=== PATIENT | female | born 1965 | race Caucasian/White ===

== ENCOUNTER 2023-02-10 10:25 | Inpatient (IN) | payer OTHER, SELFPAY ==
[2023-01-30 13:16] VITALS: BMI 28.2
[2023-02-10] VITALS (14 sets, daily range): BP systolic 104–136; BP diastolic 57–86; PULSE 65–90; RESP 12–18; TEMP 36.3–37.1; O2SAT 95–99; BMI 28.2; BMI 30.2
--- NOTE | 2023-02-10 | DI.RAD.S_ITS ---
PROCEDURE: XR LUMBAR SPINE 2-3V INDICATIONS: TLIF L4-5 TECHNIQUE: 2 operative views of the lumbar spine were acquired. COMPARISON: None. FINDINGS: Operative fluoroscopy was utilized during posterolateral rima and pedicle screw fixation and disc spacer placement at L4-L5. IMPRESSION: Operative fluoroscopy utilized during lumbar fusion surgery. No radiographic evidence of complications. Dictated by: Geovany Tellez M.D. on 02/10/2023 at 16:25 Approved by: Geovany Tellez M.D. on 02/10/2023 at 16:31
[2023-02-10 11:02] LABS: COVID19 -Nasal RAPID Negative (Negative)
[2023-02-10] MEDS: LACTATED RINGERS 1,000 ML 84 ML IV ×2 (11:16→12:57)
--- NOTE | 2023-02-10 12:04 | PM.PREOP ---
Pre-operative Note COVID-19 COVID-19 status: Negative Result date/Date tested (Pos, Neg/Pending): 02/09/23 Criteria for continued procedure: Expected advancement of disease process, Possibility delay results in more complex future surgery or treatment, Increased loss of function, Continuing or worsening of significant or severe pain, Deterioration of the patient's condition or overall health and Delay expected to result in less-positive ultimate med/surg outcome Interval Note History & Physical reviewed/Exam performed by Physician: Yes Changes to H&P: No
[2023-02-10] MEDS: CEFAZOLIN 2 GM/100 ML PREMIX 100 ML IV ×2 (12:36→20:33)
[2023-02-10] MEDS: BUPIVACAINE 0.25% (PF) 30 ML, EPINEPHrine 0.3 MG INJ (13:06)
[2023-02-10] MEDS: BUPIVACAINE 0.25% (PF) VIAL 30 ML INJ (13:08)
--- NOTE | 2023-02-10 13:14 | SUR.OPER ---
Prone on spine table, head in foam head support, padded chest and pelvic supports, gel pad at knees, lower legs supported by pillows; nipples, genitalia and toes free of pressure, arms secured on foam padded arm boards at <90 degrees abduction. Tape over blanket at thigh secured to table.
--- NOTE | 2023-02-10 15:54 | P.OP_ITS ---
Operative Date/Time/Diagnoses Date of procedure: 02/10/23 Time of procedure: 13:00 Pre-op diagnosis: 1. L4-5 spinal stenosis with disc herniation 2. History of L5-S1 fusion 3. Neurogenic claudication Post-op diagnosis: same Procedure & Clinicians Procedure: 1. L4-5 posterolateral and posterior interbody fusion 2. L4-5 posterior interbody cage placement 3. L5-S1 posterior non-segmental instrumentation removal 4. L5-S1 revision laminectomy with exploration of fusion 5. L4-5 posterior non-segmental instrumentation with pedicle screw placement 6. L5-S1 posterolateral fusion 7. [place] of bone marrow from iliac crest through a separate incision 8. Utilization of microsurgical technique and operating microscope Same procedure as scheduled: Yes Indications: Patient has been having chronic back pain and worsening lumbar radiculopathy and symptoms of neurogenic claudication. Patient failed multiple conservative management with worsening pain weakness and numbness in her lower extremity. Patient has been having difficulty performing activity of daily living. After discussing risks benefits of treatment options, patient elected proceed with surgery. Surgeon: Dao Martínez Technical Sales Advisor: Alyssia Wilson Click Yes if Unassisted: No Anesthesia Type: General Operative Notes Closure Type: primary Specimen(s): none sent Prosthetic devices, grafts, tissues, transplants, or devices: Globus revolve screws, Rise cage Applied: catheter Estimated Blood Loss (mL): 50 Blood products transfused: none Procedure in detail: Patient was seen in the preoperative area. Risks and benefits of the surgery was discussed with the patient. Informed consent was obtained from the patient and placed in the chart. Surgical site was marked. Patient was taken to the operative room. General anesthesia was administered. Prophylactic antibiotic was given to the patient less than 30 min before the incision was made. Patient was placed into a prone position on the Chung table. Patient's back was then prepped and draped in the sterile fashion. Time-out was performed at this time. Using patient's previous scar incision was made over the L4-5 L5-S1 interval on the left side. Fascia was incised in line with skin incision. Patient's previously placed hardware over the L5-S1 level was identified by dissecting down to the level the hardware using a Bovie and a Laboy. The locking caps which was removed using globus screwdriver. The locking irma was then removed from the tulips of the pedicle screws using a Timmy. The pedicle screws were then removed using the screwdriver. The screws were found to have good purchase. The Globus and MARS retractors was then placed into the wound and docked onto the L4 lamina using C-arm guidance. Using microsurgical technique and operating microscope a laminectomy facetectomy was performed by removing the L4 lamina and the L4-5 facet. The disc space at L4-5 level was identified next. And a total diskectomy was performed at L4-5 level. The endplates were decorticated using a rasp and shaver. The total diskectomy and decortication was performed at L4-5 level in order to to accomplish a L4-5 fusion. The local bone from the laminectomy and facetectomy was saved for local bone grafting. After the total diskectomy and decortication was completed, Trifecta bone graft material was combined with local bone that was harvested earlier. At this time, a separate skin is incision was made over the iliac crest. A Jamshidi needle was inserted into the iliac crest through a separate skin incision. 5 cc of bone marrow aspiration was obtained through the separate skin incision using a Jamshidi needle from the iliac crest. The bone marrow aspiration was combined with local bone and the Trifecta bone grafting material. The bone grafting material was placed into the L4-5 interbody space along with a expandable cage. The cage was expanded to its maximum height using the torque limiting screwdriver. At this time a mirror image incision was made on the right side. The fascia was incised in line with the skin incision. Patient's previously placed hardware on the right side was then removed in the same fashion as it was on the left side. The hardware was also found to have good purchase. The fusion mass on the right side was exposed by performing a right-sided hemilaminectomy at L5-S1 level. The hemilaminectomy was performed using the Kerrison rongeur to undercut the lamina at L5-S1 as well removing additional epidural scar tissue for purpose of decompressing the epidural space. The fusion mass was explored and was found have visible motion indicating pseudoarthrosis at L5-S1 level on the right side. Globus MARS retractor was inserted and docked onto the L4-5 L5-S1 posterolateral gutter. Using the power drill, posterior-lateral decortication w as performed at L4-5 L5-S1 level until bleeding cortical bone was identified. The remaining bone grafting material was placed into the L4-5 L5-S1 posterior lateral gutter he order to accomplish posterolateral fusion at the L4-5 L5-S1 level. Using the double C-arm technique, pedicle screws were placed into the L4-L5 and S1 pedicles bilaterally. This was done by placing the Jamshidi needle into the pedicles, then placing the guidewires over the Jamshidi needle, and finally placing the cannulated screws over the guidewires bilaterally. After the pedicle screws were placed, 2 titanium rods was locked into the heads of the pedicle screws using locking caps and torque limiting screwdriver. After all the hardware was placed, and confirmed with AP and lateral C-arm imaging, the wound was then irrigated with sterile normal saline and packed with Ray-Rin gauze for 3 min to accomplish hemostasis. After the gauze was removed the deep fascia was closed with #1 Vicryl suture. The subcutaneous layer was closed with 2-0 Vicryl. The skin was closed with skin tessy. Patient tolerated the procedure well. There were no complications. Complications: none Post-operative Condition: stable Disposition: PACU Plan for aftercare: Admit to inpatient hospital
[2023-02-10] MEDS: fentaNYL 100 MCG/2 ML INJ IV ×2 (16:01→16:12)
[2023-02-10] MEDS: hydrOXYzine 50 MG/ML INJ IM (16:02)
[2023-02-10] MEDS: LORazepam 2 MG/ML INJ 0.5 MG IV (16:18)
[2023-02-10] MEDS: OXYCODONE/ACETAMINOPHEN 5/325 TABLET 1 TAB PO (16:20)
--- NOTE | 2023-02-10 16:46 | SUR.PHASEI ---
to room 216, report called. All belongings with patient on bed
[2023-02-10] MEDS: LACTATED RINGERS 1,000 ML 125 ML IV (18:24)
[2023-02-10] MEDS: SENNOSIDES 8.6 MG TABLET 17.2 MG PO (20:34)
[2023-02-10] MEDS: DOCUSATE 100 MG CAPSULE PO (20:34)
[2023-02-10] MEDS: OXYCODONE IR 10 MG TABLET PO (20:35)
--- NOTE | 2023-02-10 23:43 | PC.NURSE ---
Patient is oriented but drowsy and slow to respond. Breath sounds diminished but CTA with RA sat of 96%. HRR but bradycardic at 56 bpm apically. Denies nausea. BT hypoactive and denies flatus since return from surgery. Indwelling catheter is patent; urine is clear, henri. Is able to turn with minimal staff assist; log rolls appropriately. Has not yet been out of bed so gait not assessed. Dressing to back is CDI. CMS intact except for some decreased sensation in right LE. Is wearing bilateral calf SCD's. Received oxycodone for 6/10 spasm like pain at 2034. Fall risk score is high as patient reports having fallen in past 3 months; bed alarm is activated.
[2023-02-11] VITALS: BP 102/45; PULSE 62; RESP 18; TEMP 36.1; O2SAT 100
[2023-02-11] MEDS: OXYCODONE IR 10 MG TABLET PO ×5 (00:45→21:01)
[2023-02-11] MEDS: LACTATED RINGERS 1,000 ML 125 ML IV (02:30)
[2023-02-11] MEDS: hydrOXYzine pamoate 25 MG CAPSULE PO ×4 (02:33→17:51)
[2023-02-11 03:45] VITALS: BP 122/61; PULSE 69; RESP 17; TEMP 36.7; O2SAT 98
[2023-02-11] MEDS: CEFAZOLIN 2 GM/100 ML PREMIX 100 ML IV (04:31)
[2023-02-11 06:28] LABS: Hematocrit 32.2 % (36-46); Hemoglobin 10.9 g/dL (12.0-16.0)
[2023-02-11] MEDS: DULOXETINE 30 MG CAPSULE PO (08:41)
[2023-02-11] MEDS: DOCUSATE 100 MG CAPSULE PO ×2 (08:41→21:01)
[2023-02-11 09:07] VITALS: BP 100/53; PULSE 64; RESP 18; TEMP 37.1; O2SAT 97
--- NOTE | 2023-02-11 10:37 | CM.DANOTE ---
Initial Discharge Assessment Note: Case reviewed, met with patient. Introduced self and role. Payer: [employer], [place] and self pay PCP: Dr Eugenia Castillo 57 year old female admitted yestereday for TLIF. She states she injured self on job. 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 She live in [place] with her retired spouse who is able to help post op. She states she also has a supportive family and best friends nearby who are going to be helpful to her every day. Plan: When medically/surgically cleared, return home to care of spouse. SEJ Discharge Planning/Care Management CM Discharge Assessment Start: 02/11/23 10:34 Freq: Status: Active Protocol: Document 02/11/23 10:34 SJ (Rec: 02/11/23 10:37 [id number]) Discharge Planning Assessment Assigned Clerk Rating Alison Reece RN/DCP Advance Directives? No History Provided By Patient,Medical Record Prior Living Arrangements House Household Members spouse Type of transporation used prior to Drives own vehicle admit Comment Works, drives heavy machinery. L&I case. Independent with ADL's Yes Is patient alert and oriented? Yes Caregiver for Another No Barriers to Discharge No Discharge Plan Home Transportation Arrangement Spouse to transport Referrals Initiated None needed Review Status In Process Next Review Type Continued Stay Review Pre-Anesthesia Assessment Start: 01/30/23 13:16 Freq: Status: Complete Protocol: Document 01/30/23 13:16 CAB (Rec: 01/30/23 14:29 CAB [id number]) Pre-Anesthesia Assessment Patient Information Reviewed Via Phone Assessment Assessment Completed With Patient Comment Labs/EKG done @ [facility] per pt, not here Primary Care Provider Jihan Castillo Seen Specialist in Last 12 Months Yes Specialist Seen Orthopedist Primary Language Frisian Renewable [employer] Trader Required No Height 167.64 cm Weight 79.379 kg Body Mass Index (BMI) 28.2 Hearing Ability Normal Visual Impairment No Limitations Visual Assist None Dentition Type Partial- Upper Barriers to Learning None Hx Anesthesia Reactions No Hx Family Anesthesia Reaction No Hx Malignant Hyperthermia No Hx Blood Transfusions No Anesthesia Review Requested No Environmental Remediation Consultant No alcohol intake current alcohol intake frequency holidays/special occasions only Smoking Status Former smoker how long ago did patient quit smoking Quit 5 months ago Substance Use Type does not use Pain Present Pain Reported Musculoskeletal Symptoms Abnormal Gait,Back Pain, Difficulty Walking,Numbness, Radiating Pain into Limb, Tingling History of Falling (Recent or History of Yes ) Patient is completely paralyzed or No completely immobile Mental Status Oriented to own ability Is patient on oxygen? No Does patient have STEPHENS/SOB No Hx Sleep Apnea No Currently Taking a Beta Mariaa No Can You Climb a Flight of Stairs Without Yes SOB Hx Chest Pain No Hx SOB No Hx Syncope or Dizziness No Anti-Coagulant Therapy No Has a Private Banker No Cardiac Testing No Hx Pacemaker/ICD No Pacemaker Rep Required? No Cardiac Clearance Received Not Applicable Diet Type At Home Regular,Gluten Free Dysphagia No Gastrointestinal Symptoms Constipation Chronic UTI No Bladder Pattern Frequency,Incontinent, Stress, Urgency Urinary Catheter Present No Hx Urinary Self Catheterization No Diabetes No Patient No Lactating No Hx Drug Resistant Organism No Presence of External or Internal Medical Yes: Lumbar hardware Devices Have you had any close contact with No someone diagnosed with COVID-19? Received a COVID vaccine? Yes Received all doses? Yes Marital Status Lives With spouse Current Living Arrangements House Number of Floors (Floors) One Floor Support System Spouse Does the Patient Have Assistance After Yes Surgery Patient Discharge Plan Description Return Home Comment Pt not advised on length of stay per surgeon Feels Safe in Current Environment Yes Been Physically Hurt or Threatened By a No Person in Current Environment Do you have thoughts of harming yourself None or others? Are you currently considering suicide? No Do you have a plan to hurt yourself or No Plan others? Do You Have Any Spiritual Beliefs That No May Affect Your HC Choices? Do You Have Any Cultural Practices That No May Affect Your HC Choices? Comment Mosque Who Can We Speak to About Patient's Care Family, friends Identifying Code for Release of Patient Declines to issue Information Health Care Proxy/Next of Kin Reginald () Health Care Proxy Emergency Contact Name Reginald () Emergency Contact Advance Directives? No Power of Manager English No PAC Instructions Durable medical equipment, Medications to take/avoid, Nasal antibiotic,No ETOH/ petroleum product on skin DOS, NPO,Post-op transportation,Pre -surgical wash,Sensory aids, Sturdy shoes/comfortable clothes,Do not bring valuables and remove jewelry
--- NOTE | 2023-02-11 11:45 | PM.PNPO.1 ---
Subjective Subjective Date Patient Seen: 02/11/23 Time Patient Seen: 11:45 Interval history: Lying in bed, just finished PT. 'I feel like crap.' C/o low back pain that radiates into her groin and down her anterior legs. This is intermittent and varies from sharp to achy. Eating without difficulty. Miles catheter in. Exam Vital Signs (past 8 hours): - 02/11/23 09:07 Temperature 98.8 F Pulse Rate 64 Respiratory Rate 18 Blood Pressure 100/53 L Pulse Oximetry 97 Oxygen Flow Rate 0 Oxygen Delivery Method Room Air Oxygen Flow Rate 0 Narrative Exam Narrative: 5/5 strength in hip flexors, quadriceps, hamstrings bilaterally. 5/5 DF, PF, EHL on right; 3/5 DF, PF, EHL on left. Per pt, had left foot weakness prior to surgery. Sensation to light touch intact in BLE. Calves soft, compressible, nontender and without palpable cords or masses. Objective Labs 02/11/23 05:20 Labs: Laboratory Results - last 24 hr 02/11/23 05:20 Hgb 10.9 L Hct 32.2 L PFSH Medical History (Updated 01/30/23 @ 14:23 by Joy Morejon RN) Bradycardia Fibromyalgia Gluten intolerance Herniated nucleus pulposus, lumbar History of COVID-19 (2021) IBS (irritable bowel syndrome) Major depression PTSD (post-traumatic stress disorder) Recurrent displacement of lumbar disc (2006) Surgical History (Updated 02/11/23 @ 11:50 by Nereida Hardy PA-C) History of ankle surgery (2003) History of bladder surgery History of hysterectomy History of lumbar fusion (2010) History of mandibular surgery (1984) Hx of discectomy Hx of elbow surgery (2017) Hx of tonsillectomy Social History household members: spouse Smoking Status: Former smoker alcohol intake: current Assessment & Plan Post-op Assessment and plan (1) S/P lumbar fusion: Assessment and Plan narrative: Will give dexamethasone for LE sxs; if helpful, pt should have Medrol Pack at discharge. D/c miles. Continue PT. Hope for d/c home tomorrow if good pain control and progress w/ PT. Postoperative Procedures: Procedures Operation Date: 02/10/23 11:45 Actual Procedure Side Surgeon p L4-5 TLIF, L4-S1 PSF w. instrumentation Dao Martínez MD Postoperative day: 1 Quality VTE Deep Vein Thrombosis/Pulmonary Embolism Present on Admission: No
[2023-02-11 12:00] VITALS: BP 102/48; PULSE 61; RESP 18; TEMP 36.9; O2SAT 100
--- NOTE | 2023-02-11 12:09 | PT.IIE ---
Current Diagnoses Other intervertebral disc displacement, lumbar region (02/10/23) Arthrodesis status (02/10/23) Surgery Performed Operation Date: 02/10/23 11:45 Actual Procedures p L4-5 TLIF, L4-S1 PSF w. instrumentation - Dao Martínez MD Surgical History (Last Updated 01/30/23 @ 14:18 by oJy Morejon, RN) History of ankle surgery (2003) History of bladder surgery History of hysterectomy History of lumbar fusion (2010) History of mandibular surgery (1984) Hx of discectomy Hx of elbow surgery (2017) Hx of tonsillectomy Medical History (Last Updated 01/30/23 @ 14:23 by Joy Morejon, RN) Bradycardia Fibromyalgia Gluten intolerance Herniated nucleus pulposus, lumbar History of COVID-19 (2021) IBS (irritable bowel syndrome) Major depression PTSD (post-traumatic stress disorder) Recurrent displacement of lumbar disc (2006) Physical Therapy Inpatient Evaluation/Re-Eval M1 PT/OT-IP Prior Functional Status Start: 02/11/23 11:22 Freq: NEEDED Status: Active Protocol: Document 02/11/23 11:23 LRN (Rec: 02/11/23 11:57 LRN [id number]) Medical Review Prior Functional Status Medical History Reviewed Yes Mobility and Gait Ambulate without assist device . Activities of Daily Living and IADL's Independent, limited in time standing. 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 Social History Household Members spouse Living Arrangements House Number of Floors (Floors) One Floor Number of Stairs To Enter/Railing? 2 steps with railing bilaterally Home Environment Standard Height Toilet,Tub/ Shower Home Equipment Front Wheel Walker,Quad Cane, Raised Toilet Seat w/Armrests, Shower Seat with Backrest, Shower Seat without Backrest, Hand Held Shower,Long Handled Sponge,Long Handled Shoe Horn, Perfume Compounder,Grab Bars In Shower Additional Social History Comment Has home care team: spouse, mother, daughter 2 best friends. M2 PT-IP Current Condition Start: 02/11/23 11:22 Freq: NEEDED Status: Active Protocol: Document 02/11/23 11:23 LRN (Rec: 02/11/23 11:57 LRN [id number]) Physical Therapy Current Condition Current Condition Evaluation Date 02/11/23 Treatment Diagnosis L4-L5 interbody fusion, L5-S1 posterolateral fusion Onset Date 02/10/23 M3 PT-IP Subjective Start: 02/11/23 11:22 Freq: NEEDED Status: Active Protocol: Document 02/11/23 11:23 LRN (Rec: 02/11/23 11:57 LRN [id number]) Subjective Physical Therapy Visit Type Type Initial Evaluation Visit Start Time 10:22 Visit Stop Time 11:20 Total Visit Minutes 48 Notes 10 minutes break in evaluation due to being paged overhead to address other concerns. Physical Therapy Visit Comments Patient Comments Pt agreeable to therapy. c/o back pain and anterior groin pain hip flexors angry. Pt reports anterior thigh spasms bilaterally. Pt states standing for short period to begin with helps reduce pain. Patient Goals Pt goal is to go home with family to help. Therapy Pain Assessment Pain When Pain Assessed At Rest Pain Present Pain Present Pain Reported Location Bilateral Hip Intensity 8 Scale Used Numeric (0 - 10) Description Spasm Lower Back Intensity 8 Scale Used Numeric (0 - 10) M4 PT-IP Mobility and Gait Start: 02/11/23 11:22 Freq: NEEDED Status: Active Protocol: Document 02/11/23 11:23 LRN (Rec: 02/11/23 11:57 LRN [id number]) PT-Bed Mobility Assessment Rolling Type of Rolling Log Rolling Level of Assist Minimal Assistance Supine to Sit Supine to Sit Minimal Assistance Sit to Supine Sit to Supine Minimal Assistance Scooting Scooting to Edge of Bed Independent PT-Transfer Assessment Sit to and From Stand Sit to and from Stand Standby Assistance Equipment Transfer Assistive Device Gait Belt,Front Wheeled Walker Orthotic/Prosthetic Devices or Brace: No Transfers Transfer Destination Bed Transfer Technique Stepping back/forth from bed Transfer Ability Level of Assist Minimal Assistance Comments Mobility Comments Pt required standing rest on intial standing with reduction of pain rated from 8/10 to 6/ 10. Pt felt nausea on initial sidelie>sit, but did not produce emesis. Pt felt better with deep breathing and moving near bed. Pt was returned to bed and placed in sidelie with pillow behind the back, and between the knees and ice pack placed in the back and anterior hips. Call button and bed remote was placed within reach. Pt's tray table and phone were also placed in front of her within reach. Pt I/S to notify nursing when ready to lie on her back for assist in placement of pillows. Gait Assessment Gait Gait Assistance Required: Standby Assistance Distance (Feet) 12 Able to Maintain Weight Bearing Status Yes During Gait Assistive Devices Assistive Device Gait Belt,Front Wheeled Walker Orthotic/Prosthetic Devices or Brace: No Gait Deviations General Gait Pattern Antalgic,Decreased Feet Clearance Factors Limiting Gait Function Factors Limiting Gait Function Decreased Activity Tolerance, Decreased Strength,Pain,Poor Balance Comments Gait Comments Pt was able to take 3 steps to right x 2, left x 1, and fwd/ bkwd x 1. She was initially nauseous on standing but did not produce emesis. Pt demonstrated mild foot drop on the left, but was able to mostly clear her foot from the ground. Stair Climbing Assessment Comments Stair Climbing Comments Pt was not appropriate for stair ambulation at this time due to poor tolerance of activities of transfers and gait and c/o pain and nausea. PT-Balance Assessment Sitting Balance and Reactions Static Sitting Balance Ability Good Dynamic Sitting Balance Ability Poor Standing Balance and Reactions Static Standing Balance Ability Good Dynamic Standing Balance Ability Good Device Used FWW M5 PT-IP Objective Assessments Start: 02/11/23 11:22 Freq: NEEDED Status: Active Protocol: Document 02/11/23 11:23 LRN (Rec: 02/11/23 11:57 LRN [id number]) Orientation Orientation/Cognition Level of Alertness Alert Orientation Name,Month,Year,Day of Week, Place,Situation Language Function Ability No Deficits Noted Safety Awareness Understands Safety Issues Memory Description No Deficits Noted Gross Range of Motion Upper Extremity ROM Assessment Within Functional Limits Lower Extremity ROM Assessment Within Functional Limits Strength Upper Extremity Strength Assessment Within Functional Limits Lower Extremity Strength Assessment Bilaterally Impaired Hip Deferred formal testing due to LBP, pt demonstrates at least 2-3/5 strength Knee Deferred formal testing due to LBP, but pt able to demonstrate 3/5 strength Ankle DF: L ankle 3/5, R ankle 4/5 Sensation Assessment Comments Sensation Comments Pt did not c/o numbness or tingling in the LE's. M6 PT-IP Treatment Start: 02/11/23 11:22 Freq: NEEDED Status: Active Protocol: Document 02/11/23 11:23 LRN (Rec: 02/11/23 11:57 LRN [id number]) Physical Therapy Treatment Education Education Provided Precautions,Post-Op Packet Other Treatments Other Treatment Performed Pt educated to avoid prolonged sitting > 30 minutes and educated in positioning in sidelie with use of pillows to support the back and between the knees. Encouraged pt to request nursing assist to change positions as needed for being able to tolerate supine positioning. M7 PT-IP Assessment and Plan Start: 02/11/23 11:22 Freq: NEEDED Status: Active Protocol: Document 02/11/23 11:23 LRN (Rec: 02/11/23 11:57 LRN [id number]) PT Summary Assessment and Plan Potential Rehabilitation Potential Good Status of Condition at Evaluation Evolving Summary Impairments Pain,ROM,Bed Mobility, Transfers,Gait,Activity Tolerance Assessment Summary Pt is post op day 2 s/p L4-L5 interbody fusion, L5-S1 posterolateral fusion, with harvest of bone marrow from iliac crest through a separate incision. The pt was initially in semi-reclined position to start and had a very difficulty time on being placed in supine position; therefore it was recommended that the pt avoid flexion at the hips for no greater than 30 minutes at a time while in healing phase. Pt was able to transfer with minimal assist out of bed, but did become nauseous on initial sitting. She appeared to do best in standing with a reduction in her pain complaints at the back and hips. She didn't appear to tolerate well being on her feet and stepping near bed; therefore the pt was returned to bed and repositioned in sidelie with support to her back and as straight as she could tolerate her legs being. The pt needs assist with all mobility and was not appropriate for stair ambulation due to her low tolerance. I recommend the pt stay for one more night to improve her safety with mobility and for one session of stair training. I expect with the amount of assist the patient will have at home upon DC, she will be safe to go home if she can manage stairs for entry into her house. Goals Bed Mobility Goal Independent,Standby Assistance Transfer Goal Independent,Standby Assistance Gait Goal Independent,Standby Assistance Gait Distance 100 ft Days to Meet Goals 2 Frequency of Treatment Frequency Of Treatment Twice a Day Treatment Plan Physical Therapy Treatment Plan Bed Mobility Training,Transfer Training,Gait Training,Post Op Education,Hot or Cold Pack Other Recommendations and Next Treatment Stair training Focus Precautions Lumbar Precautions Log Roll,No Twisting,Limit Bending,Lifting Restriction of 10 lbs,Gait Belt above Incisional Area Other Precautions Avoid prolonged sitting > 30 minutes Weight Bearing Status Weight Bearing Status Weight Bear as Tolerated Recommendations To Nursing Amount of Assist Needed 1 Person Assist Discharge Recommendations PT Discharge Recommendations Home with Assistance Other Discharge Recommendations Pt will need to be assessed in her ability to manage stairs for her to get into her home before discharge home. Transportation Needs at Discharge Private Vehicle
[2023-02-11] MEDS: ACETAMINOPHEN 325 MG TABLET 650 MG PO (13:26)
[2023-02-11] MEDS: DEXAMETHASONE 4 MG/ML VIAL IV ×2 (13:28→17:51)
[2023-02-11 20:00] VITALS: BP 124/71; PULSE 54; RESP 18; TEMP 37.2; O2SAT 97
[2023-02-11] MEDS: SENNOSIDES 8.6 MG TABLET 17.2 MG PO (21:01)
[2023-02-11] MEDS: SODIUM CHLORIDE 0.9% FLUSH 10 ML IV (21:01)
--- NOTE | 2023-02-11 21:46 | PC.NURSE ---
Addendum entered by Yesenia Washington R.N. 02/12/23 06:19: Catheter d'cd; tolerated well. Instructed in sx/prevention of UTI. Placed pad as patient states she has problems with urgency and dribbling. Original Note: Patient is alert and oriented. Breath sounds CTA with RA sat of 96%. HRR but bradycardic with rate of 56 apically. Denies nausea. BT present and is passing flatus. Indwelling catheter patent; urine is clear, light yellow. Refused to have catheter removed but states she is agreeable to having discontinued in a.m. Is able to turn herself in bed. Has been out of bed today with walker and 1 assist. Still had pain control issues during day but more tolerable since receiving Dexamethasone; medicated for 7/10 back and hip pain with oxycodone and ice applied to hips. States pain is a dull ache but with movement is more sharp. Wearing bilateral calf SCD's. States she has tingling in both feet and sensation is better in right foot; CMS otherwise is intact. Fall risk score is high and bed alarm is activated.
[2023-02-11 23:30] VITALS: BP 110/50; PULSE 59; RESP 18; TEMP 36.9; O2SAT 94
[2023-02-12] MEDS: SODIUM CHLORIDE 0.9% FLUSH 10 ML IV ×3 (00:02→08:29)
[2023-02-12] MEDS: DEXAMETHASONE 4 MG/ML VIAL IV ×3 (00:02→12:07)
[2023-02-12] MEDS: OXYCODONE IR 10 MG TABLET PO ×3 (03:23→09:54)
[2023-02-12] MEDS: hydrOXYzine pamoate 25 MG CAPSULE PO (03:26)
[2023-02-12] MEDS: ACETAMINOPHEN 325 MG TABLET 650 MG PO (04:18)
[2023-02-12 04:49] VITALS: BP 106/54; PULSE 60; RESP 19; TEMP 36.8; O2SAT 99
[2023-02-12 08:00] VITALS: BP 118/45; PULSE 55; RESP 20; TEMP 36.9; O2SAT 98
[2023-02-12] MEDS: DOCUSATE 100 MG CAPSULE PO (08:27)
[2023-02-12] MEDS: LORATADINE 10 MG TABLET PO (08:27)
[2023-02-12] MEDS: DULOXETINE 30 MG CAPSULE PO (08:27)
--- NOTE | 2023-02-12 09:38 | PT.IPTN ---
Current Diagnoses Other intervertebral disc displacement, lumbar region (02/10/23) Arthrodesis status (02/10/23) Surgery Performed Operation Date: 02/10/23 11:45 Actual Procedures p L4-5 TLIF, L4-S1 PSF w. instrumentation - Dao Martínez MD Physical Therapy Treatment Note M2 PT-IP Current Condition Start: 02/11/23 11:22 Freq: NEEDED Status: Active Protocol: Document 02/11/23 11:23 LRN (Rec: 02/11/23 11:57 LRN [id number]) Physical Therapy Current Condition Current Condition Evaluation Date 02/11/23 Treatment Diagnosis L4-L5 interbody fusion, L5-S1 posterolateral fusion Onset Date 02/10/23 M3 PT-IP Subjective Start: 02/11/23 11:22 Freq: NEEDED Status: Active Protocol: Document 02/12/23 09:14 KS (Rec: 02/12/23 10:28 KS [id number]) Subjective Physical Therapy Visit Type Type Treatment Note Visit Start Time 09:14 Visit Stop Time 09:38 Total Visit Minutes 24 Notes Spouse present for caregiver training Number of DRILL SETUP OPERATOR Visits 1 Physical Therapy Visit Comments Patient Comments Pt agreeable to PT, wants to go home. Patient Goals Pt goal is to go home with family to help. BP 128/56 Standing M4 PT-IP Mobility and Gait Start: 02/11/23 11:22 Freq: NEEDED Status: Active Protocol: Document 02/12/23 09:14 KS (Rec: 02/12/23 10:28 KS [id number]) PT-Bed Mobility Assessment Rolling Type of Rolling Log Rolling,Roll to Left Level of Assist Standby Assistance Scooting Scooting to Edge of Bed Independent PT-Transfer Assessment Sit to and From Stand Sit to and from Stand Independent Equipment Transfer Assistive Device Gait Belt,Front Wheeled Walker Orthotic/Prosthetic Devices or Brace: No Transfers Transfer Destination Bed,Toilet Transfer Technique Ambulated Transfer Ability Level of Assist Standby Assistance,Use of Upper Extremities Comments Mobility Comments Pt ambulating to bathroom w/ [id number] assisting upon arrival . BP taken in standing 128/56. Pt able to recall 3/3 spinal precautions. She ambulated to platform step in hallway and completed 2x platform step w/ FWW and CGA w/ cues for sequencing. Her spouse provided CGA for second step and then SBA for ~200 ft ambulation w/ FWW in hallway. Pt states her L foot drop and numbness feels improved post surgery. She returned to her room and bed SBA. Pt left w/ all needs in reach and spouse in room. Gait Assessment Gait Gait Assistance Required: Standby Assistance Distance (Feet) 200 Able to Maintain Weight Bearing Status Yes During Gait Assistive Devices Assistive Device Gait Belt,Front Wheeled Walker Orthotic/Prosthetic Devices or Brace: No Gait Deviations General Gait Pattern Antalgic,Decreased Feet Clearance Factors Limiting Gait Function Factors Limiting Gait Function Decreased Activity Tolerance, Decreased Strength,Pain,Poor Balance Comments Gait Comments Good use of FWW, slow and cautious gait w/ slight L foot drop, but no LOB. Has FWW at home. Stair Climbing Assessment Evaluation Level of Assist On Stairs Contact Guard Assistance,1 Person Assistance Devices Stair Climbing Assistive Devices Front Wheel Walker Technique/Endurance Stair Climbing Direction Ascend and Descend Stair Climbing Technique Step to Step Number of Steps Climbed 1 Stair Climbing Set # Repetitions (reps) 2 Comments Stair Climbing Comments Pt ascended and descended 2x platform step w/ FWW and CGA provided by and verbal cues for sequencing of legs and FWW. Pt feels confident to complete stairs at home and feels capable of helping. PT-Balance Assessment Sitting Balance and Reactions Static Sitting Balance Ability Good Dynamic Sitting Balance Ability Fair Standing Balance and Reactions Static Standing Balance Ability Good Dynamic Standing Balance Ability Good Device Used FWW M5 PT-IP Objective Assessments Start: 02/11/23 11:22 Freq: NEEDED Status: Active Protocol: Document 02/11/23 11:23 LRN (Rec: 02/11/23 11:57 LRN [id number]) Orientation Orientation/Cognition Level of Alertness Alert Orientation Name,Month,Year,Day of Week, Place,Situation Language Function Ability No Deficits Noted Safety Awareness Understands Safety Issues Memory Description No Deficits Noted Gross Range of Motion Upper Extremity ROM Assessment Within Functional Limits Lower Extremity ROM Assessment Within Functional Limits Strength Upper Extremity Strength Assessment Within Functional Limits Lower Extremity Strength Assessment Bilaterally Impaired Hip Deferred formal testing due to LBP, pt demonstrates at least 2-3/5 strength Knee Deferred formal testing due to LBP, but pt able to demonstrate 3/5 strength Ankle DF: L ankle 3/5, R ankle 4/5 Sensation Assessment Comments Sensation Comments Pt did not c/o numbness or tingling in the LE's. M6 PT-IP Treatment Start: 02/11/23 11:22 Freq: NEEDED Status: Active Protocol: Document 02/12/23 09:14 KS (Rec: 02/12/23 10:28 KS [id number]) Physical Therapy Treatment Education Education Provided Precautions,Post-Op Packet, Safety Other Treatments Other Treatment Performed Discussed at home safety, precautions, transferring into /out of vehicle. M7 PT-IP Assessment and Plan Start: 02/11/23 11:22 Freq: NEEDED Status: Active Protocol: Document 02/12/23 09:14 KS (Rec: 02/12/23 10:28 DC [id number]) PT Summary Assessment and Plan Potential Rehabilitation Potential Good Summary Impairments Pain,ROM,Bed Mobility, Transfers,Gait,Activity Tolerance Progress Towards Goals Progressing Toward Goals Assessment Summary Pt feeling eager to return home today w/ family assisting . She ambulated ~200 ft w/ FWW and completed 2 platform steps. Her hsuband was able to provide all necessary assistance however at this time pt only requires SBA to CGA. She will benefit from OP PT when appropriate for spinal mobility and stability. Goals Bed Mobility Goal Independent,Standby Assistance Transfer Goal Independent,Standby Assistance Gait Goal Independent,Standby Assistance Gait Distance 100 ft Days to Meet Goals 2 Frequency of Treatment Frequency Of Treatment Twice a Day Treatment Plan Physical Therapy Treatment Plan Bed Mobility Training,Transfer Training,Gait Training,Post Op Education,Hot or Cold Pack Precautions Lumbar Precautions Log Roll,No Twisting,Limit Bending,Lifting Restriction of 10 lbs,Gait Belt above Incisional Area Other Precautions Avoid prolonged sitting > 30 minutes Weight Bearing Status Weight Bearing Status Weight Bear as Tolerated Recommendations To Nursing Amount of Assist Needed 1 Person Assist Discharge Recommendations PT Discharge Recommendations Home with Assistance Transportation Needs at Discharge Private Vehicle
[2023-02-12 12:00] VITALS: BP 121/62; PULSE 60; RESP 18; TEMP 37; O2SAT 95
--- NOTE | 2023-02-12 12:52 | P.DS_ITS ---
History of Present Illness History of Present Illness Date Patient Seen: 02/12/23 Time Patient Seen: 12:52 Chief complaint: INPT Narrative: She notes she is doing much better today. Her pain is adequately controlled. She is better since she is been on the Decadron. She does still note some aching into the right hip and slight pain which radiates down the right leg. She had some problems with urinary incontinence preoperatively she notes that she is still noticing it postoperatively. She is able to void but she does not have adequate control. Discharge Providers Provider Date of admission: 02/10/23 10:25 Discharge Date: 02/12/23 Primary care physician: Jihan Castillo PA-C Consults: 02/10/23 16:48 Consult to Occupational Therapy Evaluate & Treat Comment: Physician Instructions: Evaluate and treat Consult to Physical Therapy Evaluate & Treat Comment: Physician Instructions: Evaluate and Treat Discharge provider: Ashleigh Thakkar MD Summary Hospital Course Discharge Diagnosis: Spinal stenosis status post L4-5 TLIF and L4-S1 posterior instrumented fusion Hospital Course: She was admitted to the spine service she underwent a surgical decompression. She did have some problems with slight numbness right-sided leg pain postoperatively. She responded to IV steroids and pain medications. She was mobilized with physical therapy and was independent knee ambulating well ready for discharge. Status at Discharge Cognitive/behavioral status at discharge: oriented Functional status at discharge: uses cane/walker Overall status at discharge: patient is progressing back to baseline Time Spent with Patient Time spent: Less than 30 minutes Exam Vital Signs (past 8 hours): - 02/12/23 08:00 02/12/23 12:00 Temperature 98.4 F 98.6 F Pulse Rate 55 L 60 Respiratory Rate 20 18 Blood Pressure 118/45 L 121/62 Pulse Oximetry 98 95 Oxygen Flow Rate 0 0 Oxygen Delivery Method Room Air Oxygen Flow Rate 0 Narrative Exam Narrative: Dressing is dry, she is able to ambulate with her walker she has a slight antalgic gait on the right, her calfs are soft bilaterally she has mild numbness on the anterior aspect of her right thigh and just distal to the knee, she is good range of motion in the knee, she is able to fire quads tibialis anterior and gastrocsoleus bilaterally she was standing at bedside without difficulty Objective Labs 02/11/23 05:20 [facility] Medical History (Updated 01/30/23 @ 14:23 by Joy Morejon RN) Bradycardia Fibromyalgia Gluten intolerance Herniated nucleus pulposus, lumbar History of COVID-19 (2021) IBS (irritable bowel syndrome) Major depression PTSD (post-traumatic stress disorder) Recurrent displacement of lumbar disc (2006) Surgical History (Updated 02/11/23 @ 11:50 by Nereida Hardy PA-C) History of ankle surgery (2003) History of bladder surgery History of hysterectomy History of lumbar fusion (2010) History of mandibular surgery (1984) Hx of discectomy Hx of elbow surgery (2017) Hx of tonsillectomy Social History household members: spouse Smoking Status: Former smoker alcohol intake: current Discharge Assessment & Plan Assessment and Plan Assessment: Improving status lumbar decompression and fusion. She is stable for discharge. I have recommended a Medrol Dosepak for home discharge. Plan of Treatment: Discharge to home and keep previously scheduled follow-up. Pain medications and Medrol Dosepak sent to [facility]. Discharge Plan Discharge Plan Patient Disposition: Home Discharge orders & Medications Prescriptions: New polyethylene glycol 3350 17 gram Powder In Packet 17 gm PO DAILY PRN (Reason: Constipation) Qty: 30 0RF bisacodyl 10 mg Suppository 10 mg [place] PRN PRN (Reason: Constipation) Qty: 2 0RF docusate sodium 100 mg Capsule 100 mg PO BID Qty: 30 0RF hydroxyzine pamoate 25 mg Capsule 25 mg PO Q4HR PRN (Reason: Nausea And Vomiting) Qty: 30 2RF oxycodone 10 mg Tablet 10 mg PO Q3H PRN (Reason: Pain, Severe (7-10)) Qty: 40 0RF Continued meloxicam 15 mg Tablet 15 mg PO DAILY tramadol 50 mg Tablet 50 mg PO QD-BID PRN (Reason: Pain) Claritin-D 12 Hour 5-120 mg Tablet Extended Release 12 Hr 1 tab PO QAM acetaminophen 500 mg Capsule 1,000 mg PO TID-QID PRN (Reason: Pain) duloxetine 30 mg Capsule,Delayed Release(Dr/Ec) 30 mg PO DAILY naproxen sodium [Aleve] 220 mg Capsule 220 mg PO TID Follow up/Referrals: Dao Martínez MD [Physician] - As previously scheduled (Follow up w/ Ashley Quijano PA-C, on 02/21/2023 @ 10:30 am at [facility] office in [place].) Jihan Castillo PA-C [Primary Care Provider] - Diet/Activity/Treatments Diet: Diet as Tolerated Activity: No deep bending or twisting at the waist. No lifting more than 10 pounds. Cold/Heat Therapy: Heating pad to low back as needed for pain. Skin/Wound/Dressing Care Report to your healthcare provider any signs of infection, such as:: chills, fever, night sweats, unusual drainage and unusual redness Dressing: May shower; keep dressing as dry as possible. If dressing becomes wet or dirty inside, may remove and replace with clean, dry gauze. No bathing or o therwise soaking incisions. Do not apply any creams, lotions, or ointments to incisions. Visit Report/Discharge Packet Instructions: DI for Prescription Opioid Use, DI for Transforaminal Lumbar Interbody Fusion Stand Alone Forms: Patient Portal/API, Stroke Signs & Symptoms Discharge Data Primary Care Provider: Jihan Castillo Quality VTE Deep Vein Thrombosis/Pulmonary Embolism Present on Admission: No
--- NOTE | 2023-02-12 14:04 | CM.DPC ---
DCP Discharge Home Per Ortho MD, pt is medically stable to d/c home today and pain well managed and Rx sent to [facility] and outpt f/u. Per ADMINISTRATIVE ASSISTANT DATA ENTRY, pt ambulated well today and completed stairs and pt cleared for d/c home. Plan: Patient to d/c home via spouse POV and family assist and outpt f/u with Ortho and no further SW needs at this time. NICK Gonzalez
--- NOTE | 2023-02-12 16:29 | PC.NURSE ---
Pt dressed with the help of spouse at bedside. Reviewed d/c paperwork regarding new narcotic med to be picked up at [facility] in [place], the need to use bowel meds if she is feeling constipation d/t Oxycodone, and reviewed post back surgery protocol such as s/s of infection, no soaking incisions, keeping incisions clean and dry, no lifting over 10 lbs and to ambulate and eat as tolerated. Pt and spouse had no further questions/concerns at this time. Pt left unit with all belongings at 1320 via wheelchair escorted by GUEST REQUEST RUNNER to [facility].
== END 2023-02-12 13:20 | disposition home or self-care (01) | DRG 304 ==
PROVIDERS: Admitting Provider Orthopaedic Surgery Orthopaedic Surgery of the Spine; PCP Physician Assistant; Referring Provider Orthopaedic Surgery Orthopaedic Surgery of the Spine; Visit Provider Orthopaedic Surgery Orthopaedic Surgery of the Spine
PROC: 0SG00AJ Fusion of Lumbar Vertebral Joint with Interbody Fusion Device, Posterior Approach, Anterior Column, Open Approach (ICD-10-PCS; principal; 2023-02-10 11:45)
DX: M48.062 Spinal stenosis, lumbar region with neurogenic claudication (principal); M51.26 Other intervertebral disc displacement, lumbar region; M48.07 Spinal stenosis, lumbosacral region; M51.37 Other intervertebral disc degeneration, lumbosacral region; M54.17 Radiculopathy, lumbosacral region; M96.1 Postlaminectomy syndrome, not elsewhere classified; M96.0 Pseudarthrosis after fusion or arthrodesis; N39.498 Other specified urinary incontinence; M79.7 Fibromyalgia; R20.0 Anesthesia of skin; Z98.1 Arthrodesis status; Z20.822 Contact with and (suspected) exposure to COVID-19; Y99.0 Civilian activity done for income or pay
CPT/HCPCS: 36415; 72100; 76000; 85014; 85018; 87635; 97116; 97162; 97530; C9803; J0171; J0690; J1100; J1170; J2060; J2250; J2405; J2704; J3010; J3410; J3490